=== PATIENT | female | born 1995 | race Caucasian/White ===

== ENCOUNTER 2024-01-10 13:23 | Emergency (ER) | payer BC, MEDICAID ==
[~2024-01-10] VITALS: Ht 170.2 cm; Wt 106.6 kg
[2024-01-10 13:26] VITALS: BP 150/89; PULSE 80; RESP 16; TEMP 98.6; O2SAT 99
[2024-01-10] MEDS ORDERED: LURA80TA2 MT (13:38)
== END 2024-01-10 14:18 | disposition home or self-care (01) ==
LOC: ER 13:23
DX: R68.89 Other general symptoms and signs (principal); F31.9 Bipolar disorder, unspecified; Z76.0 Encounter for issue of repeat prescription
CPT/HCPCS: 99283